=== PATIENT | female | born 1970 | race Two or more races ===

== ENCOUNTER 2019-08-12 20:34 | Emergency (ER) | payer MEDICAID ==
[~2019-08-12] VITALS: Ht 160 cm; Wt 56.7 kg
[2019-08-12 20:34] VITALS: BP 137/75
--- NOTE | 2019-08-12 20:35 | NUR ---
PT BIBA C/O "FEELING SICK". PT HAS GENERALIZED BODY PAIN AND WEAKNESS FOR TWO DAYS. PT AWAKE, CALM, VSS AT THIS TIME, RR EVEN AND UNLABORED ON RA W NAD NOTED. PT CONNECTED TO THE MONITOR AND POX. AWAITING FOR MD NORMAN
--- NOTE | 2019-08-12 22:15 | NUR ---
DR FUNG AT BEDSIDE
--- NOTE | 2019-08-12 22:20 | NUR ---
PT UNCOOPERATIVE, REFUSING TREATMENT AND REFUSING TO ANSWER QUESTIONS. ER MD AT BEDSIDE
--- NOTE | 2019-08-12 22:30 | NUR ---
Patient eloped from facility. ER MD notified.
== END 2019-08-12 23:00 | disposition left against medical advice (07) ==
LOC: ER 20:34
DX: M79.18 Myalgia, other site (principal); R53.1 Weakness; Z53.21 Procedure and treatment not carried out due to patient leaving prior to being seen by health care provider

== ENCOUNTER 2021-01-17 15:22 | Emergency (ER) | payer MEDICAID, OTHER ==
[~2021-01-17] VITALS: Ht 160 cm; Wt 54.4 kg
--- NOTE | 2021-01-17 15:43 | NUR ---
Yhe patient is [id number], from redline, nausea vomiting, alcohol withdrawal. In room air and denies SOB. Respiration regular and unlabored. Will continue to monitor the patient.
[2021-01-17] MEDS ORDERED: CLIN300C12 PO (15:52)
[2021-01-17] MEDS ORDERED: SULF1TAB48 PO (15:52)
[2021-01-17] MEDS ORDERED: IBUPROFEN 600 MG TABLET ONE (15:59)
[2021-01-17] MEDS ORDERED: IBUPROFEN 600 MG TABLET PO ONE (16:00)
--- NOTE | 2021-01-17 17:03 | NUR ---
PT AMBULATORY W/ STEADY GAIT. REQUESTING TO BE DISCHARGED. MEDICALLY CLEARED. D/C HOME IN STABLE CONDITION.
[2021-01-17 17:04] VITALS: BP 128/76
== END 2021-01-17 17:05 | disposition home or self-care (01) ==
LOC: ER 15:23
DX: S60.521A Blister (nonthermal) of right hand, initial encounter (principal); S70.321A Blister (nonthermal), right thigh, initial encounter; L03.115 Cellulitis of right lower limb; L03.113 Cellulitis of right upper limb; F17.200 Nicotine dependence, unspecified, uncomplicated; Z88.1 Allergy status to other antibiotic agents; Z79.899 Other long term (current) drug therapy; X58.XXXA Exposure to other specified factors, initial encounter; Y93.89 Activity, other specified; Y92.89 Other specified places as the place of occurrence of the external cause; Y99.8 Other external cause status